=== PATIENT | female | born 1960 | race Caucasian/White ===

== ENCOUNTER 2019-10-12 08:31 | Outpatient (CLI) | payer OTHER, SELFPAY ==
--- NOTE | ~2019-10-12 | MM_ITS ---
EXAMINATION: MM screening anamaria BI w mendez HISTORY: Screening mammogram TECHNIQUE: Craniocaudal and mediolateral oblique 3-D tomosynthesis images were obtained and synthetic 2-D images were generated. CAD analysis was submitted and interpreted. COMPARISON: 08/21/2018, 08/18/2017, 08/15/2016 bilateral digital screening mammogram examinations BREAST PARENCHYMAL COMPOSITION: The breasts are heterogeneously dense, which may obscure small masses . FINDINGS: There is no evidence of suspicious mass, calcification, or architectural distortion to sugg est malignancy in either breast. There has been no suspicious interval change. IMPRESSION: 1. No mammographic evidence of malignancy. 2. Recommend routine screening mammography in one year. BI-RADS Category 1: Negative Reviewed, dictated and finalized at location A.
== END 2019-10-12 08:32 | disposition home or self-care (01) ==
LOC: ANHIMG 08:35
PROVIDERS: PCP Family Medicine; Visit Provider Family Medicine
DX: Z12.31 Encounter for screening mammogram for malignant neoplasm of breast (principal)
CPT/HCPCS: 77063; 77067

== ENCOUNTER → 2020-02-28 09:59 | Outpatient (REF) | payer OTHER, SELFPAY | LOC: ANHLAB 09:59 | PROVIDERS: PCP Family Medicine; Visit Provider Nurse Practitioner | DX: C44.729 Squamous cell carcinoma of skin of left lower limb, including hip (principal) | CPT/HCPCS: 88305; 88331 ==

== ENCOUNTER 2020-10-12 08:28 | Outpatient (CLI) | payer OTHER, SELFPAY ==
--- NOTE | ~2020-10-12 | MM_ITS ---
EXAMINATION: MM screening anamaria BI w mendez HISTORY: Screening mammogram TECHNIQUE: Craniocaudal and mediolateral oblique 3-D tomosynthesis images were obtained and synthetic 2-D images were generated. CAD analysis was submitted and interpreted. COMPARISON: 10/12/2019, 08/21/2018, 08/19/2007 bilateral digital screening mammogram examinations BREAST PARENCHYMAL COMPOSITION: The breasts are extremely dense, which lowers the sensitivity of mamm ography. FINDINGS: A new approximately 6.5 mm asymmetric opacity is noted at mid depth in the outer right gogo [address] on craniocaudal view. Diagnostic right mammogram is recommended, with ultrasound if required. Otherwise there is no evidence of suspicious mass, calcification, or architectural distortion to sugg est malignancy in either breast. There has been no other suspicious interval change. IMPRESSION: 1. New asymmetric 6.5 mm opacity in the outer right breast on craniocaudal view 2. Diagnostic right mammogram is recommended, with ultrasound if required BI-RADS Category 0: Incomplete: Needs additional imaging evaluation. Reviewed, dictated and finalized at location A.
== END 2020-10-12 08:29 | disposition home or self-care (01) ==
LOC: ANHIMG 08:33
PROVIDERS: PCP Family Medicine; Visit Provider Family Medicine
DX: Z12.31 Encounter for screening mammogram for malignant neoplasm of breast (principal); R92.8 Other abnormal and inconclusive findings on diagnostic imaging of breast
CPT/HCPCS: 77063; 77067

== ENCOUNTER → 2020-10-13 07:44 | Outpatient (CLI) | payer OTHER, SELFPAY ==
--- NOTE | ~2020-10-13 | MMUS_ITS ---
EXAMINATION: MM diagnostic anamaria RT w mendez, US breast RT limited HISTORY: New asymmetric 6 x 5 mm opacity reported in the outer right breast on screening craniocaudal view of 10/12/2020 TECHNIQUE: Additional 3-D tomosynthesis images of the right breast were performed and synthetic 2-D i mages were generated. Rolled medial and rolled lateral craniocaudal views. CAD analysis was submitted and interpreted. High resolution upper outer and lower-outer quadrant right breast ultrasound was pe rformed. COMPARISON: 10/12/2020, 10/12/2019 bilateral digital screening mammogram examinations FINDINGS: MAMMOGRAPHIC FINDINGS: No definite reproducible mass is noted, but there is extremely dense stroma which may obscure masses. Ultrasound interrogation of the outer half of the right breast was performed. ULTRASOUND: 10:00 6 cm from nipple: There is an irregular approximately 5-6 mm with some posterior shadowing, no demonstrated internal vascularity on color flow imaging. Ultrasound-guided biopsy is recommended. 1.6 x 2.9 mm cyst at 7:00 4 cm from nipple. IMPRESSION: 1. 5 -6 mm irregular hypoechoic lesion at right breast 10:00 6 cm from nipple 2. Ultrasound-guided biopsy of right breast 10:00 lesion is recommended BI-RADS category 4, suspicious findings. Dr. Costa telephoned the report and ultrasound guided biopsy recommendation on 10/13/2020 at 0856 hours to the clinical supervisor winter's voicemail. Reviewed, dictated and finalized at location A. IMPRESSION: 1. 5 -6 mm irregular hypoechoic lesion at right breast 10:00 6 cm from nipple 2. Ultrasound-guided biopsy of right breast 10:00 lesion is recommended BI-RADS category 4, suspicious findings. Dr. Costa telephoned the report and ultrasound guided biopsy recommendation on at 0856 hours to the clinical supervisor winter's voicemail.
== END ==
PROVIDERS: PCP Family Medicine; Visit Provider Physician Assistant
DX: R92.8 Other abnormal and inconclusive findings on diagnostic imaging of breast (principal)
CPT/HCPCS: 76642; 77061; 77065; G0279

== ENCOUNTER 2020-10-18 10:11 | Outpatient (CLI) | payer OTHER, SELFPAY ==
--- NOTE | ~2020-10-18 | US_ITS ---
Consultation US 10/18/2020 11:07 Indication: Focal abnormality identified on recent ultrasound. Biopsy requested for further evaluatio n. Procedure: High-resolution Limited ultrasound of the right breast at 10:00, 6 cm from the nipple. Comparison: Ultrasound dated 10/13/2020 Findings: At 10:00, 6 cm from the nipple there is a subtle hypoechoic area, although this area is not confirmed on 2 orthogonal planes, most likely superimposed fibroglandular tissue. No definitive mass is identified. Impression: 1: Probable benign heterogeneous fibroglandular content. No discrete mass identified on 2 orthogonal planes. Findings discussed with the patient at the time of the examination. Biopsy canceled. BI-RADS CATEGORY 3-PROBABLY BENIGN FINDING RECOMMENDATION: Six-month follow-up diagnostic right mammogram and ultrasound recommended. Reviewed, dictated and finalized at location A. Impression: 1: Probable benign heterogeneous fibroglandular content. No discrete mass ident ified on 2 orthogonal planes. Findings discussed with the patient at the time o f the examination. Biopsy canceled. BI-RADS CATEGORY 3-PROBABLY BENIGN FINDING RECOMMENDATION: Six-month follow-up diagnostic right mammogram and ultrasound r ecommended.
== END 2020-10-18 10:12 | disposition home or self-care (01) ==
PROVIDERS: PCP Family Medicine; Visit Provider Family Medicine
DX: R92.8 Other abnormal and inconclusive findings on diagnostic imaging of breast (principal)
CPT/HCPCS: 99199

== ENCOUNTER 2021-03-15 12:40 | Outpatient (CLI) | payer OTHER, SELFPAY ==
[2021-03-15 15:28] LABS: SARS-CoV-2 RNA PCR Positive (Negative)
== END 2021-03-15 12:41 | disposition home or self-care (01) ==
LOC: CHSLAB 12:42
PROVIDERS: PCP Family Medicine; Visit Provider Family Medicine
DX: U07.1 COVID-19 (principal)
CPT/HCPCS: C9803; U0003; U0005

== ENCOUNTER 2021-04-06 13:45 | Outpatient (CLI) | payer OTHER, SELFPAY ==
--- NOTE | ~2021-04-06 | MMUS_ITS ---
EXAMINATION: MM diagnostic anamaria RT w mendez, US breast RT limited HISTORY: Follow-up right breast mass TECHNIQUE: Additional 3-D tomosynthesis images of the right breast were performed and synthetic 2-D i mages were generated. CAD analysis was submitted and interpreted. High resolution Limited right breas t ultrasound was performed. COMPARISON: 10/13/2020 BREAST PARENCHYMAL COMPOSITION: The breasts are heterogenously dense, which may obscure small masses. FINDINGS: MAMMOGRAPHIC FINDINGS: There is focal asymmetry laterally in the right breast on CC view, not visualized on MLO or mediolate ral views. ULTRASOUND: Limited left breast ultrasound: There is an enlarging irregular shaped hypoechoic mass of the right breast at 10:00, 6 cm from the ni pple measuring 7 x 7 x 6 mm. There is mixed posterior attenuation. No internal vascularity. At 7:00, 4 cm from the nipple, there is an oval hypoechoic mass measuring 3 mm with parallel orientation, no p osterior features and no internal vascularity, likely benign. IMPRESSION: 1. Enlarging irregular shaped hypoechoic right breast mass at 10:00, 6 cm from the nipple. 2. Ultrasound-guided right breast biopsy recommended. BI-RADS category 4, suspicious findings. Reviewed, dictated and finalized at location A. R HAULER IMPRESSION: 1. Enlarging irregular shaped hypoechoic right breast mass at 10:00, 6 cm from the nipple. 2. Ultrasound-guided right breast biopsy recommended. BI-RADS category 4, suspicious findings.
== END 2021-04-06 13:46 | disposition home or self-care (01) ==
LOC: ANHIMG 13:46
PROVIDERS: PCP Family Medicine; Visit Provider Family Medicine
DX: N63.13 Unspecified lump in the right breast, lower outer quadrant (principal); N63.11 Unspecified lump in the right breast, upper outer quadrant
CPT/HCPCS: 76642; 77061; 77065; G0279

== ENCOUNTER → 2022-03-25 13:07 | Outpatient (CLI) | payer OTHER, SELFPAY ==
--- NOTE | ~2022-03-25 | US_ITS ---
EXAMINATION: US soft tissue abdomen DATE: 03/25/2022 13:21 INDICATION: Lump at the right lower chest/upper abdominal wall. TECHNIQUE: Multiple grayscale and Doppler ultrasound images of the region of concern at the anterior right upper abdomen/lower chest were obtained. COMPARISON: Chest CT dated 12/02/2013 FINDINGS/IMPRESSION: Nonspecific 2-3 mm hypoechoic nodule without evident vascular flow on color Doppler Center 4 mm deep to the skin surface in the subcutaneous fat at the region of concern. Correlation with prior CT 2013 demonstrates a similar sized and similarly located tiny subcutaneous nodule on series 3, image 192. T his likely but not definitively represents the same lesion suggesting a benign etiology. Given histor y of prior malignancy could consider continued clinical follow-up with repeat imaging either by ultra sound or CT if there is progression on physical exam. Reviewed, dictated and finalized at location A. EE WEIGHER
== END ==
PROVIDERS: PCP Family Medicine; Visit Provider Family Medicine
DX: R22.2 Localized swelling, mass and lump, trunk (principal)
CPT/HCPCS: 76705

== ENCOUNTER 2022-06-14 08:07 | Outpatient (CLI) | payer OTHER, SELFPAY ==
--- NOTE | ~2022-06-14 | CT_ITS ---
Clinical Indication: Chest mass, history of breast cancer CT Scan of the Chest with Contrast: Technique: Contiguous sections were acquired throughout the chest after intravenous administration of 75 cc of Omnipaque 350. Dose reduction technique was used on this scan by utilizing automated exposu re control and iterative reconstruction technique. The dose-length product (DLP) was 151.98 mGy-cm. COMPARISON: 12/02/2013 Findings: There is no evidence of any significant mediastinal, hilar or axillary lymphadenopathy. There is no f illing defect in the pulmonary arterial tree to suggest pulmonary embolus. There is no evidence of ao rtic dissection or aneurysm. There is no evidence of pleural or pericardial effusion. The lungs are clear, aside from left lower lobe calcified granuloma. Images through the upper abdomen reveal no abnormalities. Impression: No evidence of pulmonary embolus, aortic dissection, or aortic aneurysm. No significant pulmonary abnormality seen. Reviewed, dictated and finalized at [facility]. Impression: No evidence of pulmonary embolus, aortic dissection, or aortic aneurysm. No significant pulmonary abnormality seen.
[2022-06-14 08:41] LABS: Estimated Glomerular Filt Rate > 60
== END 2022-06-14 08:08 | disposition home or self-care (01) ==
PROVIDERS: PCP Family Medicine; Visit Provider Family Medicine
DX: R22.2 Localized swelling, mass and lump, trunk (principal)
CPT/HCPCS: 71260; Q9967

== ENCOUNTER 2023-11-29 13:28 | Emergency (ER) | payer OTHER, SELFPAY ==
[2023-11-29 13:37] VITALS: BP 127/72; PULSE 100; RESP 18; TEMP 36.8; O2SAT 99
--- NOTE | 2023-11-29 13:42 | ED.EXTPRO ---
HPI - Extremity Problem General Chief complaint: Extremity Problem,Nontraumatic Stated complaint: elbow concerns Source: patient Mode of arrival: ambulatory Limitations: no limitations History of Present Illness HPI Narrative: 63-year-old female presented for complaint of right elbow pain and swelling. Onset today. Endorses recently moving heavy furniture frequently. She states she has an abrasion to the elbow sustained approximately 2 weeks ago and has not had any complications. She denies numbness, tingling, weakness or decreased range of motion to the right arm. Related Data Allergies Allergy/AdvReac Type Severity Reaction Status Date / Time iodine Allergy Unknown Skin Verified 11/29/23 13:41 Reaction Contrast Media Allergy Unknown Rash Uncoded 11/29/23 13:41 Review of Systems Review of Systems: CONSTITUTIONAL: Denies body aches, fever, chills CARDIOVASCULAR: Denies chest pain, palpitations, or edema. RESPIRATORY: Denies cough or dyspnea. GASTROINTESTINAL: Denies abdominal pain, nausea, vomiting, or diarrhea. SKIN: Denies rash, itching, or wounds. MUSCULOSKELETAL: reports right elbow pain, swelling NEUROLOGIC: Denies headache, numbness, tingling, or weakness. All systems reviewed & are unremarkable except as noted in HPI and below PMFSH Past Medical History Medical History (Updated 11/29/23 @ 14:00 by Elma Lira APRN) Atypical depressive disorder Benign hypertension Lobular breast cancer 8 mm estrogen receptor positive Surgical History Surgical History Hx of cholecystectomy Hx of dilation and curettage Family History Family History Sibling Diabetes mellitus Family history of allergic disorder Father No problems noted. Mother Neuropathy Other Family history of elevated blood lipids Social History Social History Smoking status: Never smoker Alcohol intake: current Drinks per week: 2 Alcohol use details: wine and beer Substance use: never Lack of Transportation: No Lack of Food: Never True Current Housing: I Have Housing Concerned About Future Housing: No Difficulty Paying Gas/Electric Bills: No Difficulty Paying for Meds: No Currently Unemployed: No Education: High School Diploma/GED Difficulty w/ Childcare or Family Care: No Living arrangements: alone Occupation/Education: retired Gender identity (if verbalized by the patient): Female Sexual Orientation (if Verbalized by the Patient): Straight or Heterosexual Comments At time of signature, I have reviewed and agree with nursing past medical, surgical, social and family history unless otherwise noted. Please see nursing chart for further information. There is no relevant family history pertinent to the presenting complaint Exam Narrative: GENERAL: Well-appearing CHEST: Speaks in full sentences. No respiratory distress. HEART: Regular rate and rhythm. Normal and equal peripheral pulses. EXTREMITIES: Right elbow with localized swelling c/w bursitis. Minimal erythema surrounding a well healing scabbed area of approx 0.5cm. RUE has normal strength and sensation, normal range of motion at elbow without pain with movement; endorses mild discomfort with full extension. point tenderness to area of swelling. No ecchymosis, No open wounds, or obvious deformity; alignment normal, pulse palpable and equal bilaterally, skin warm, dry, pink. Capillary refill less than 3 seconds. SKIN: Warm, dry, no rash. NEURO: Alert and oriented x3. PSYCH: Normal mood and affect Course Course Emergency Course: Patient is aware of diagnosis, understands and agrees to treatment plan. Anticipatory guidance given. Patient agrees to follow-up as directed and is aware of reasons to seek care at the emergency department. Portions of this christine
== END 2023-11-29 13:57 | disposition home or self-care (01) ==
PROVIDERS: Emergency Provider Nurse Practitioner Family; PCP Family Medicine
DX: M70.31 Other bursitis of elbow, right elbow (principal); I10 Essential (primary) hypertension; Z85.3 Personal history of malignant neoplasm of breast
CPT/HCPCS: 99213; G0463

== ENCOUNTER 2024-01-02 00:14 | Day surgery (SDC) | payer OTHER, SELFPAY ==
[2023-12-16 11:17] VITALS: BMI 29.1
[2024-01-02 07:11] VITALS: BP 136/91; PULSE 105; RESP 18; TEMP 37; O2SAT 96
[2024-01-02] MEDS: LACTATED RINGERS 1,000 ML 150 ML IV CONT (07:13)
--- NOTE | 2024-01-02 07:19 | WPDANESEPPF ---
Anes - Initial Pre Proc Eval Procedure: Operation Date: 01/02/24 08:30 Proposed Procedures p Screening Colonoscopy - Enzo Diaz MD Date/Time: 01/02/24 07:19 Surgeon: Enzo Diaz MD Pre Op Diagnosis: Neoplasm screening Patient Data Age: 63 Gender: F Height: 1.55 m Weight: 69.4 kg Last Vital Signs Temp 37.0 C 01/02/24 07:11 Pulse 105 H 01/02/24 07:11 Resp 18 01/02/24 07:11 BP 136/91 H 01/02/24 07:11 Pulse Ox 96 01/02/24 07:11 O2 Del Method Room Air 01/02/24 07:11 Allergies Allergy/AdvReac Type Severity Reaction Status Date / Time iodine Allergy Unknown Skin Verified 01/02/24 07:09 Reaction Contrast Media Allergy Unknown Rash Uncoded 12/18/23 13:23 Home Medications Medication Instructions Recorded Confirmed Type anastrozole 1 mg tablet 1 mg PO DAILY #30 tabs 06/27/21 01/02/24 Rx zoledronic acid 4 mg intravenous 4 mg IV .q6 mos #1 ea 06/27/21 01/02/24 Rx solution diltiazem HCl 120 mg 240 mg PO DAILY #180 caps 10/16/23 01/02/24 Rx capsule,extended release 24 hr duloxetine 60 mg capsule,delayed 60 mg PO DAILY #90 caps 11/13/23 01/02/24 Rx release levothyroxine 88 mcg tablet 88 mcg PO DAILY #90 tabs 11/13/23 01/02/24 Rx triamterene 37.5 See Rx Instructions .Route 11/13/23 01/02/24 Rx mg-hydrochlorothiazide 25 mg tablet .COMPLEX #90 tabs ibuprofen 800 mg tablet 800 mg PO TID PRN pain #15 tabs 11/29/23 01/02/24 Rx Patient hx anesthesia problems: none Family hx anesthesia problems: none Results Review: All pre-operative results and documents have been reviewed as part of the pre-operative evaluation. [facility] Past Medical History Medical History Atypical depressive disorder Benign hypertension Lobular breast cancer 8 mm estrogen receptor positive Surgical History Surgical History Hx of cholecystectomy Hx of dilation and curettage Family History Family History Sibling Diabetes mellitus Family history of allergic disorder Father No problems noted. Mother Neuropathy Other Family history of elevated blood lipids Social History Social History Smoking status: Never smoker Second hand tobacco smoke exposure: No Alcohol intake: current Drinks per week: 2 Alcohol use details: wine and beer Substance use: never Substance use type: does not use Do You Feel Safe in your Home?: Yes Lack of Transportation: No Lack of Food: Never True Current Housing: I Have Housing Concerned About Future Housing: Decline to Answer Difficulty Paying Gas/Electric Bills: Decline to Answer Difficulty Paying for Meds: Decline to Answer Currently Unemployed: Decline to Answer Education: Decline to Answer Difficulty w/ Childcare or Family Care: Decline to Answer Living arrangements: alone Occupation/Education: retired Additional occupation/education comments: [employer] Gender identity (if verbalized by the patient): Female Sexual Orientation (if Verbalized by the Patient): Straight or Heterosexual Spiritual care concerns: No Anes - Eval Final PreProcedure Day of Procedure 01/02/24 07:19 Patient weight: overweight Heart: regular rate and rhythm Lungs: clear to auscultation Airway: Mallampati scale class II Neurological: alert and oriented Last oral intake: >/= 8 hours ASA classification: II Emergent: no Anesthetic plan: proceed Anesthesia type and monitoring: general GIVS and standard monitoring Results Review: All pre-operative results and documents have been reviewed as part of the pre-operative evaluation. Informed Consent: The patient's anesthetic plan and its attendant risks and benefits were discussed with the patient/family/POA. Questions were solicited and answers pro
--- NOTE | 2024-01-02 08:15 | PM.HPGS ---
History of Present Illness History of Present Illness Consent: Risks, benefits, and alternatives have been discussed and questions answered. Patient agrees to proceed with procedure. Chief complaint: Neoplasm screening Narrative: Anne Guy is a 63 year old female here for screening colonoscopy, last one 12 years ago Review of Systems Review of Systems: All systems reviewed & are unremarkable except as noted in HPI and below PMFSH Past Medical History Medical History (Updated 01/02/24 @ 08:16 by Enzo Diaz MD) Atypical depressive disorder Benign hypertension Colon cancer screening Lobular breast cancer 8 mm estrogen receptor positive Surgical History Surgical History Hx of cholecystectomy Hx of dilation and curettage Family History Family History Sibling Diabetes mellitus Family history of allergic disorder Father No problems noted. Mother Neuropathy Other Family history of elevated blood lipids Social History Social History Smoking status: Never smoker Second hand tobacco smoke exposure: No Alcohol intake: current Drinks per week: 2 Alcohol use details: wine and beer Substance use: never Substance use type: does not use Do You Feel Safe in your Home?: Yes Lack of Transportation: No Lack of Food: Never True Current Housing: I Have Housing Concerned About Future Housing: Decline to Answer Difficulty Paying Gas/Electric Bills: Decline to Answer Difficulty Paying for Meds: Decline to Answer Currently Unemployed: Decline to Answer Education: Decline to Answer Difficulty w/ Childcare or Family Care: Decline to Answer Living arrangements: alone Occupation/Education: retired Additional occupation/education comments: [place] Gender identity (if verbalized by the patient): Female Sexual Orientation (if Verbalized by the Patient): Straight or Heterosexual Spiritual care concerns: No Meds Home Medications and Allergies Home Medications Medication Instructions Recorded Confirmed Type anastrozole 1 mg tablet 1 mg PO DAILY #30 tabs 06/27/21 01/02/24 Rx zoledronic acid 4 mg intravenous 4 mg IV .q6 mos #1 ea 06/27/21 01/02/24 Rx solution diltiazem HCl 120 mg 240 mg PO DAILY #180 caps 10/16/23 01/02/24 Rx capsule,extended release 24 hr duloxetine 60 mg capsule,delayed 60 mg PO DAILY #90 caps 11/13/23 01/02/24 Rx release levothyroxine 88 mcg tablet 88 mcg PO DAILY #90 tabs 11/13/23 01/02/24 Rx triamterene 37.5 See Rx Instructions .Route 11/13/23 01/02/24 Rx mg-hydrochlorothiazide 25 mg tablet .COMPLEX #90 tabs ibuprofen 800 mg tablet 800 mg PO TID PRN pain #15 tabs 11/29/23 01/02/24 Rx Allergies Allergy/AdvReac Type Severity Reaction Status Date / Time iodine Allergy Unknown Skin Verified 01/02/24 07:09 Reaction Contrast Media Allergy Unknown Rash Uncoded 12/18/23 13:23 Vital Signs Vital Signs - 24 hr 01/02/24 07:11 Temperature 98.6 F Pulse Rate 105 H Respiratory Rate 18 Blood Pressure 136/91 H Pulse Oximetry 96 Oxygen Delivery Room Air Exam Const: General: comfortable and no acute distress HENMT: Face/Nose/Sinus: Normal nares present Eyes: General: appearance normal, both eyes and all related structures Neck: Neck: no JVD Resp: Auscultation: clear to auscultation bilaterally Cardio: Rate: regular rate Rhythm: regular rhythm GI: Inspection: non-distended GI Palp: Yes Soft to palpation Skin: General skin exam: normal color Neuro: General: gait normal Speech: normal speech Extrem: General: normal to inspection Psych: Mental Status: mental status grossly normal Assessment and Plan Assessment and plan (1) Colon cancer screening: Code(s): Z12.11 - Encounter for screening for malignant neoplasm of colon
[2024-01-02 08:33] VITALS: BP 118/65; PULSE 101; RESP 18; O2SAT 94
[2024-01-02 08:43] VITALS: BP 117/66; PULSE 101; RESP 18; O2SAT 94
[2024-01-02 08:53] VITALS: BP 94/65; PULSE 76; RESP 18; O2SAT 96
== END 2024-01-02 09:05 | disposition home or self-care (01) ==
PROVIDERS: PCP Family Medicine; Referring Provider Nurse Practitioner; Visit Provider Internal Medicine Gastroenterology
PROC: 0DJD8ZZ Inspection of Lower Intestinal Tract, Via Natural or Artificial Opening Endoscopic (ICD-10-PCS; CPT 45378; principal; 2024-01-02 08:30)
DX: Z12.11 Encounter for screening for malignant neoplasm of colon (principal); K62.1 Rectal polyp; K64.8 Other hemorrhoids; K57.30 Diverticulosis of large intestine without perforation or abscess without bleeding; I10 Essential (primary) hypertension; F32.89 Other specified depressive episodes; Z79.1 Long term (current) use of non-steroidal anti-inflammatories (NSAID); Z98.890 Other specified postprocedural states; Z90.49 Acquired absence of other specified parts of digestive tract; Z85.3 Personal history of malignant neoplasm of breast
CPT/HCPCS: 45380; 88305; J1596; J2003; J2704; J7120

== ENCOUNTER 2024-01-12 09:35 | Outpatient (CLI) | payer OTHER, SELFPAY ==
--- NOTE | ~2024-01-12 | XR_ITS ---
EXAMINATION: XR cervical spine 4-5V DATE: 01/12/2024 09:53 INDICATION: Neck pain. TECHNIQUE: 5 views of cervical spine were obtained. COMPARISON: None. FINDINGS: There is 18 degrees levoscoliosis of cervicothoracic spine. There is 2 mm retrolisthesis of C4 on C5, C5 on C6, and C6 on C7. Vertebral body heights are normal. There is severely decreased dis c height from C4-C5 through C7-T1. There is multilevel uncovertebral joint osteoarthritis, severe carole aterally from C4-C5 through C6-C7. There is multilevel severe facet joint osteoarthritis. There is mi ld central canal stenosis at C4-C5, C5-C6, C6-C7, and C7-T1. No prevertebral soft tissue swelling. IMPRESSION: 1. Severe cervical spondylosis. 2. Cervicothoracic levoscoliosis. Reviewed, dictated and finalized at location B.
--- NOTE | ~2024-01-12 | XR_ITS ---
EXAMINATION: XR shoulder LT min 2V DATE: 01/12/2024 09:53 INDICATION: Left shoulder pain. TECHNIQUE: 4 views of left shoulder were obtained. COMPARISON: None. FINDINGS: Alignment is normal. No fracture. There is mild osteoarthritis of acromioclavicular joint. Glenohumeral joint is normal. IMPRESSION: 1. Mild osteoarthritis of acromioclavicular joint. Reviewed, dictated and finalized at location B.
== END 2024-01-12 09:36 | disposition home or self-care (01) ==
LOC: MICIMG 09:36
PROVIDERS: PCP Family Medicine; Visit Provider Family Medicine
DX: M19.012 Primary osteoarthritis, left shoulder (principal); M47.892 Other spondylosis, cervical region
CPT/HCPCS: 72050; 73030

== ENCOUNTER 2024-07-15 12:34 | Outpatient (CLI) | payer OTHER, SELFPAY ==
--- NOTE | ~2024-07-15 | MR_ITS ---
MRI of the right shoulder Technique: Axial proton-density fat-sat images, coronal proton density fat-sat and T2 fat-sat images, and sagittal T1-weighted and T2 fat-sat images were acquired. Clinical History: Pain Findings: There is minimal AC joint degenerative change. Coracoclavicular, coracoacromial, and coraco humeral ligaments are intact. There is probable full-thickness tear extensively involving the distal supraspinatus tendon. Infraspi natus tendon is intact without definite tear. Subscapularis tendon is intact with moderate to advance d tendinosis. Tendon of the long head of the biceps is probably ruptured proximally and retracted int o the bicipital groove. Truncation of the superior labrum is compatible with tear at the biceps labral anchor region. There is a heterogeneous intraosseous lesion at the greater tuberosity humerus, suggestive of enchond rsahel. No distinct aggressive imaging features are seen such as periosteal reaction or soft tissue mas s. Inferior glenohumeral ligament is intact. There is small glenohumeral joint effusion with fluid ex tending through the rotator cuff defect into the subacromial/subdeltoid bursa. No muscle atrophy or e sydni. Impression: Probable extensive full-thickness tear at the distal supraspinatus tendon. Complete rupture of the proximal long head biceps tendon with retraction to the bicipital groove. Truncated superior labrum is compatible with associated tear at the biceps labral anchor region. 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 Reviewed, dictated and finalized at [facility]. Impression: Probable extensive full-thickness tear at the distal supraspinatus tendon. Complete rupture of the proximal long head biceps tendon with retraction to the bicipital groove. Truncated superior labrum is compatible with associated tear at the biceps labr al anchor region. 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
== END 2024-07-15 12:35 | disposition home or self-care (01) ==
PROVIDERS: PCP Family Medicine; Visit Provider Orthopaedic Surgery
DX: M25.811 Other specified joint disorders, right shoulder (principal); S46.111A Strain of muscle, fascia and tendon of long head of biceps, right arm, initial encounter; X58.XXXA Exposure to other specified factors, initial encounter; M75.101 Unspecified rotator cuff tear or rupture of right shoulder, not specified as traumatic
CPT/HCPCS: 73221